=== PATIENT | female | born 1960 | race Caucasian/White ===

== ENCOUNTER → 2022-09-05 | Outpatient (CLI) | payer OTHER, SELFPAY ==
--- NOTE | 2022-09-05 13:00 | MRI_ITS ---
EXAM: MR RIGHT UPPER EXTREMITY WITHOUT INTRAVENOUS CONTRAST, SHOULDER CLINICAL INDICATION: Strain of the muscle rotator cuff TECHNIQUE: Multiplanar and multisequence MR images of the right shoulder without intravenous contrast. This report was created using [employer] technology. COMPARISON: None. FINDINGS: TENDONS: SUPRASPINATUS: Full thickness full width of tear of the supraspinatus tendon with failure at the footprint and retraction of the majority of the torn tendon fibers to about the midline. INFRASPINATUS: Infraspinatus tendon appears to be intact. SUBSCAPULARIS: Unremarkable. Intact. TERES MINOR: Unremarkable. Intact. BICEPS BRACHII, LONG HEAD: Unremarkable. The extra-articular biceps tendon is in the bicipital groove. The intra-articular biceps tendon is normal. LIGAMENTS: GLENOHUMERAL: Unremarkable. Intact. MUSCLES: Significant atrophy involving the infraspinatus and supraspinatus muscles. This could be due to the chronic nature of the injury. FLUID: Large glenohumeral joint effusion across into the subacromial/subdeltoid bursa through the full thickness rotator cuff defect. CARTILAGE: Unremarkable. Articular cartilage intact. GLENOID LABRUM: Unremarkable. Intact, limited evaluation on non-arthrographic exam. BONES/JOINTS: Superior subluxation of the right humeral head relative to the glenoid. No fracture. No abnormal bone marrow signal. OTHER SOFT TISSUES: Unremarkable. No rotator interval edema. MRI/Upper Ext Joint Only(Routine) IMPRESSION: 1. Full thickness full width of tear of the supraspinatus tendon with failure at the footprint and retraction of the majority of the torn tendon fibers to about the midline. 2. Type II acromion with curved undersurface. Moderate hypertrophic degenerative changes of the left Lion marilin. No definite subacromial enthesophyte or os acromiale. No coracoacromial ligament thickening. Electronically Signed: Ken De Paz MD at 2:13 EST ,
== END | disposition home or self-care (01) ==
LOC: MRI 12:54
PROVIDERS: Referring Provider Physician Assistant; Visit Provider Physician Assistant
DX: S46.011D Strain of muscle(s) and tendon(s) of the rotator cuff of right shoulder, subsequent encounter (principal)
CPT/HCPCS: 73221

== ENCOUNTER → 2022-09-22 | Outpatient (CLI) | payer OTHER, SELFPAY ==
--- NOTE | 2022-09-22 07:53 | CT_ITS ---
STUDY: CT SCAN LOWER EXTREMITY RIGHT. [facility] protocol. REASON FOR EXAM: Female, 62 years old. Planning for total knee replacement. RADIATION DOSAGE (If Supplied By Facility): CTDIvol = ( 19.53 ) mGy, DLP = ( 1505.26 ) mGycm. Individualized dose optimization techniques were used for this CT.? TECHNIQUE: Multiple axial tomographic images were obtained of the right hip joint, right knee joint and the right ankle joint. Coronal and sagittal reconstruction was obtained as well. COMPARISON: None. FINDINGS: Imaging of the hip joint was obtained. No significant joint space narrowing is seen. No evidence of subluxation. Imaging of the knee joint was obtained. There is a moderate degree of joint space narrowing involving the medial compartment of the knee joint. Degenerative spur formation of the distal medial and lateral femoral condyles. Mild degree of joint space scarring of the patellofemoral joint with degenerative spur formation along the distal anterior aspect of the femur. Imaging of the ankle joint was obtained as well. There is good alignment. No significant abnormality is seen. CT/Extremity Lower without Contra IMPRESSION: Moderate degree of joint space narrowing involving the medial compartment of the knee joint with degenerative spur formation of the distal femur as described. Electronically Signed: Roland Garcia MD at 14:23 EST ,
== END | disposition home or self-care (01) ==
PROVIDERS: PCP Registered Nurse; Referring Provider Orthopaedic Surgery; Visit Provider Orthopaedic Surgery
DX: M21.161 Varus deformity, not elsewhere classified, right knee (principal)
CPT/HCPCS: 73700

== ENCOUNTER 2022-10-10 05:34 | Day surgery (SDC) | payer OTHER, SELFPAY ==
--- NOTE | 2022-09-28 12:22 | EKG12_ITS ---
Test Reason : PRE-OP Blood Pressure : / mmHG Vent. Rate : 081 BPM Atrial Rate : 081 BPM P-R Int : 146 ms QRS Dur : 086 ms QT Int : 378 ms P-R-T Axes : 049 004 036 degrees QTc Int : 439 ms Normal sinus rhythm with sinus arrhythmia Poor R wave progression Confirmed by MAEGAN MENDOZA, NARENDRA ([id number]), continuity editor BRIANNE ENAMORADO ([id number]) on 09/29/2022 10:54:01 AM Referred By: Walter Waters Confirmed By:NARENDRA ISSA MD
[2022-09-28 13:46] LABS: Absolute Lymphocyte Count 1.68 X10^3/uL (0.83-4.51); Absolute Neutrophil Count 3.7 X10^3/uL (2.0-7.7); Basophil# 0.04 X10^3/uL; Basophil% 0.7 % (0-1); Eosinophil# 0.27 X10^3/uL; Eosinophils% 4.4 % (0-5); Hematocrit 43.5 % (37-47); Hemoglobin 13.8 g/dL (12.0-15.0); Lymphocyte # 1.68 X10^3/ul (0.83-4.51); Lymphocyte % 27.4 % (19-41); Mean Corp Hgb Conc 31.7 g/dL (32-36); Mean Corpuscular Volume 88.4 fL (81-99); Mean Platelet Vol. 10.5 fl (6.2-12.0); Monocyte% 6.5 % (0-10); NRBC Flagged by Analyzer 0 % (0-5); Neutrophil # 3.73 X10^3/uL (2.7-7.7); Neutrophil % 60.8 % (47-70); Platelet Count 224 K/mm3 (150-450); RBC Distribution Width CV 14.6 % (11.6-14.6); RBC Distribution Width SD 47.4 fl (35.1-43.9); Red Blood Count 4.92 M/mm3 (4.2-5.4); White Blood Count 6.1 K/mm3 (4.4-11.0)
[2022-09-28 14:15] LABS: Albumin, Serum 3.9 g/dL (3.2-5.0); Anion Gap 2 (5-15); BUN 16 mg/dL (7-18); BUN/Creat Ratio 21.3 RATIO (10-20); Calcium,Total 9.8 mg/dL (8.5-10.1); Chloride 107 mmol/L (98-107); Creatinine, Serum 0.75 mg/dL (0.55-1.02); EST Glomerular Filtration Rate 84 mL/min (>60); Est Glom Filt Rate - Afr Amer 101 mL/min (>60); Glucose 135 mg/dL (74-106); Potassium 4.4 mmol/L (3.5-5.1); Sodium Level 139 mmol/L (136-145)
[2022-09-28 14:19] LABS: Magnesium 2.1 mg/dL (1.6-2.6)
[2022-09-28 14:20] LABS: Hemoglobin A1c 5.7 % (3.8-5.6)
[2022-10-10] VITALS (14 sets, daily range): BP systolic 97–145; BP diastolic 62–86; PULSE 60–85; RESP 16–18; TEMP 36.1–37; O2SAT 94–100; BMI 44.3
[2022-10-10] MEDS: Lactated Ringers 1,000 ML 15 ML IV (06:35)
[2022-10-10] MEDS: Gabapentin 600 MG Tablet PO (06:38)
[2022-10-10] MEDS: Acetaminophen 500 MG Tablet 1000 MG PO ×2 (06:38→14:37)
[2022-10-10 07:11] LABS: Bedside Glucose 109 mg/dL (74-106)
--- NOTE | 2022-10-10 07:30 | KNEE_PTH ---
PATIENT: BÁRBARA DOHERTY LOC: [facility] [place] U#:[id number] AGE/SX: 62/F ROOM: RE10/10/[address]: Dr. Walter Waters DO : 1960 BED: DIS: 10/10/2022 SPEC #: [id number] RECD: 10/10/22 10:56 STATUS: JEREMIAH REQ #: [id number] RAJANI: 10/10/22 07:[address]: Walter Waters DEPT: SURGICAL PATHOLOGY RECD BY: Chayo Merida ENTERED: 10/10/22 12:00 SP TYPE: TOTAL KNEE OTHR DR: Edwina Rojas, CHANGE NUMBER OPERATORBrandy Tissues: Knee, NOS Procedures: Decalcification bone/plaque Surgery Specimen Level IV HEADER OPERATION: ERAS, total knee replacement robotic arm assist, right PRE-OP DIAGNOSIS: Osteoarthritis right knee TISSUE SUBMITTED: Right knee bone MICROSCOPIC DIAGNOSIS Bone and tissue of right knee, total knee resection: Severe degenerative joint disease. AM:mary 10/13/2022 MICROSCOPIC DESCRIPTION Slides are reviewed. GROSS DESCRIPTION Received is one container designated right knee bone. The specimen consists of multiple fragments of zhang-yellow bone measuring in aggregate 10 x 11 x 3 cm. No soft tissue is identified. A number of bony fragments contain articular surfaces consistent with tibial plateau and femoral condyle and displaying prominent osteophyte formation, eburnation, and bone erosion. Pot Reliner sections are submitted in one cassette after decalcification. / SJ:mary 10/10/2022 TC:5 CPT: 36371, [id number]
[2022-10-10] MEDS: Cefazolin 2 GM in 0.9% Normal Saline 100 ML IV (07:40)
[2022-10-10] MEDS: TXA 1000mg in NS100 100ml (IVPB at Incision) 660 MG IV (08:05)
[2022-10-10] MEDS: TXA 1000mg in NS100 100ml (IVPB at Closure) 660 MG IV (09:08)
--- NOTE | 2022-10-10 09:30 | PCM.OPRPT ---
Report of Operation Date of Procedure: 10/10/22 Pre-Operative Diagnosis: OA bilateral knees Post-Operative Diagnosis: same Surgery/Procedure Performed:: Right TKR, cortisone injection left knee Description of Surgical Findings:: Report of Operation Date of Procedure: 10/10/2022 Preoperative Diagnosis: [Bilateral ] knee primary osteoarthritis Postoperative Diagnosis: [Bilateral ] knee primary osteoarthritis Operation: Robotic Assisted Knee Total Arthroplasty, [ right knee ] knee, Injection left knee with 4 cc 1% Lidocaine without epinephrine and 2 cc Celestone Soluspan Surgeon: Dr Walter Waters DO Pneumatic Hoist Operator: Wenceslao Pollack PA-C Anesthesia: spinal Anesthesiologist: Dheeraj Alcantar M.D. Findings: Stable knee with good patella tracking Specimen(s): Bony cuts Complications: No intraoperative complications Estimated Blood Loss: 20 c IV Fluids: 100 cc crystalloid Implants Used: 1. [place] Triathlon press fit CR size 3 femur 2. Diana Triathlon size 4 tibia 3. 29 mm patella 4. 10 mm CS polyethylene Brief History Operative Indications: [ (62 y/o female) ] with history of [ bilateral ] knee osteoarthrosis with radiographic findings with loss of joint space, osteophyte formation and subchondral sclerosis. Failed conservative measures as mentioned in the H&P. Discussion of total knee arthroplasty as well as risk and benefits were discussed with the patient including but not limited to blood loss, DVTs, PEs, neurovascular damage, general risk of anesthesia including loss of life, and stiffness or instability were also discussed with the patient. Patient demonstrated understanding and was able to sign informed consent. Procedure: On the date of procedure, patient's [right ] lower extremity was marked in the preoperative area. The patient was then taken back to the operating room where that patient was placed on the table in the supine position. All bony prominences were identified and well-padded. Anesthesia assumed control of the C-spine and airway throughout the remainder of the procedure. A tourniquet was placed on the [right ] upper thigh and the leg was prepped in a sterile fashion. The surgeon then scrubbed at this time. Upon reentering the room, the [ right ] lower extremity was draped in a standard orthopedic fashion. A timeout was then called and everyone agreed upon the side, the site, the procedure to be performed, patient's identity and antibiotics given. Esmarch bandage was used to exsanguinate the extremity and the tourniquet was placed up to 300 mmHg with the knee in flexion. A midline skin incision was made and a sharp dissection was taken down through skin, subcutaneous tissue and fat. The standard medial parapatellar incision was made and the patella was subluxed laterally. An appropriate deep MCL release was done and the fat pad was resected. Our attention was then directed to the patella. The patella was everted and a flat resection was made. The knee was then flexed up and 2 femoral pins were placed inside the incision and 2 tibial pins were placed outside the incision in the medial tibia bicortically. Once this was completed, the 2 checkpoints in the femur and tibia were placed. Knee was then flexed up and the bony landmarks were registered. Once the was completed, the knee taken through range of motion and manually stressed allowing us to plan for an appropriate tibial cut. The robotic arm was brought into the field sterilely and checkpoint and saw were registered. Based on the patient's deformity, the tibial cut was made in [1 degree varus ]. At this time, the tensioner was then placed in the joint and ligament tension was checked at 90 degrees and full extension. Based on the patient's ligamentous tension, appropriate adjustments were made to the operative plan and ligament releases were done. Once we were happy with our operative plan with balanced flexion and extension gaps, our attention was directed to the femur. The robot was brought into the field sterilely and registered. Posterior condylar cuts, anterior chamfer cuts and anterior cuts were appropriately made for a [size 3 ] femur. When these were completed, the saws were switched out in the distal femoral and posterior chamfer cuts were made. Protecting the soft tissue throughout this time. A [size 4] base plate was selected. The knee was flexed to 90 degrees and soft tissues and posterior osteophytes were removed from the joint. 40 cc of the periarticular injection was injected into the posterior medial corner of the joint. The appropriate trials were then placed on the femur and tibia. A trial polyethylene was trialed to ensure proper balancing and stability of the knee. The appropriate tibial internal rotation was then marked with a bovie. Our attention was then directed to the patella. The lug holes were drilled and the patella trial was placed. Patellar tracking was checked and deemed appropriate. Once we were happy, lug holes were drilled for the femur and trial components were removed. The tibia was subluxed and pinned into place and the keel was punched and drilled appropriately. Final components were verified and opened. The wound was copiously irrigated with normal saline. The components were impacted into place with the tibia, femur and finally the patella. The trial poly component was placed and the knee was placed in full extension. The tracking, alignment and balance were verified and a [10 mm CS ] polyethylene component was placed. Once the final components were placed an Irrisept lavage was performed and the wound was copiously irrigated with normal saline solution and the periarticular injection was given. the wound was closed in a layer-thornton fashion using #1 vicryl interrupted sutures for the arthrotomy, 2-0 interrupted vicryl suture for the subcuticular layer and ruthy for final skin closure. A sterile compressive dressing was then placed. The left knee was prepared sterilely and the injected via an anteromedial approach with 4cc of 1% Lidocaine without epinephrine and 2 cc of Celestone Soluspan. A Band-Aid was placed on the injection site. The patient was then awakened from anesthesia, transferred to the [facility] and transferred to the PACU for recovery. My physician interior design assistant was a vital part of this case. He was important in appropriate retraction during the case, and protection of soft tissues during bony cuts. His intimate knowledge of the case and my steps aided in safe and expedient completion of the procedure as well as appropriate position of the leg during the case. He was also vital in assisting with closure under my direct supervision. Due to the complexity of this case, robotic arm was used to assist in the surgery to improve accuracy and clinical outcomes. Post-op Plan: DVT ppx; ASA 81 mg BID, thigh high compression stockings Follow up: in office in 2 weeks for wound check PT: to start POD #0 at hospital, outpatient PT should be arranged. Preoperative antibiotic: Walter Waters DO Surgeon: Walter Waters commercial lawn specialist: Wenceslao Pollack Type of Anesthesia: Spinal Anesthesiologist: Dheeraj Alcantar Specimen's removed: bone Drains: none Estimated Blood Loss (mL): 20 cc Fluids Replaced: 1000 cc crystalloid Admit VTE Documentation VTE Present on Admission: No VTE Mechan Device Prophylaxis: SCD's VTE Pharm Prophylaxis ordered?: Yes
[2022-10-10] MEDS: Triamcinolone Acetonide 40 MG/ML Vial (09:40)
[2022-10-10] MEDS: Lidocaine 1% (5 ml sdv) 5 ML Vial (09:40)
[2022-10-10] MEDS: Lactated Ringers 1,000 ML 999 ML IV (10:15)
--- NOTE | 2022-10-10 10:15 | RAD_ITS ---
STUDY: X-RAY - RIGHT KNEE REASON FOR EXAM: Female, 62 years old. Post op -- in PACU TECHNIQUE: 2 view(s) of the knee. COMPARISON: None. FINDINGS: The patient is status post total knee replacement. There is good alignment. Postoperative soft tissue changes. RAD/Knee 1 or 2 Views IMPRESSION: Status post total knee replacement. There is good alignment. Postoperative soft tissue changes. Electronically Signed: Roland Garcia MD at 10:57 EST ,
--- NOTE | 2022-10-10 13:16 | SUR.PHASEII ---
Patient attempted to stand at the side of the bed. She was able to stand for a few seconds, but when she tried to take a few steps she couldn't. She states her butt feels numb. So I put her back to bed to try again later.
[2022-10-10] MEDS: oxyCODONE 5 MG Tablet PO (13:32)
[2022-10-10] MEDS: Scopolamine 1mg/72hr Patch 1 PATCH TD (14:52)
[2022-10-10] MEDS: Ondansetron 4 MG/2 ML Vial IV (15:26)
--- NOTE | 2022-10-10 15:26 | SUR.PHASEII ---
Patient was able to get up to the chair after walking two step with her walker. She still c/o dizziness and now is afraid she is going to vomit. Zofran 4mg given via IV push per doctor order. Patient remains in the chair so we can see if this subsides.
--- NOTE | 2022-10-10 15:47 | SUR.PHASEII ---
PATIENT VOMITED ONCE IN WHILE UP IN THE CHAIR, BUT SHE SAYS SHE FEELS BETTER AND ONCE TO TRY AND WALK. PT Called and will be over.
== END 2022-10-10 17:27 | disposition home or self-care (01) ==
LOC: SDC 05:35 → AC 05:36
PROVIDERS: Anesthesiology; PCP Registered Nurse; Referring Provider Orthopaedic Surgery; Visit Provider Orthopaedic Surgery
PROC: (CPT 27447; principal; 2022-10-10 07:00)
DX: M17.11 Unilateral primary osteoarthritis, right knee (principal); E66.01 Morbid (severe) obesity due to excess calories; Z68.41 Body mass index [BMI] 40.0-44.9, adult; M21.161 Varus deformity, not elsewhere classified, right knee
CPT/HCPCS: 27447; 20610; 01402; 36415; 73560; 80048; 82040; 82962; 83036; 83735; 85025; 87081; 88305; 88311; 93005; 97162; C1776; J7120; A4216; J2405; J3475

== ENCOUNTER 2023-01-02 05:30 | Day surgery (SDC) | payer OTHER, SELFPAY ==
[2022-12-29 12:27] LABS: Hematocrit 43.9 % (37-47); Hemoglobin 13.7 g/dL (12.0-15.0); Mean Corp Hgb Conc 31.2 g/dL (32-36); Mean Corpuscular Hgb 27.9 pg (27.0-32.0); Mean Corpuscular Volume 89.4 fL (81-99); Mean Platelet Vol. 9.5 fl (6.2-12.0); Platelet Count 212 K/mm3 (150-450); RBC Distribution Width CV 13.9 % (11.6-14.6); RBC Distribution Width SD 45.4 fl (35.1-43.9); Red Blood Count 4.91 M/mm3 (4.2-5.4); White Blood Count 8.3 K/mm3 (4.4-11.0)
[2022-12-29 13:01] LABS: Albumin, Serum 3.6 g/dL (3.2-5.0); Anion Gap 4 (5-15); BUN 18 mg/dL (7-18); BUN/Creat Ratio 28.9 RATIO (10-20); Calcium,Total 9.9 mg/dL (8.5-10.1); Chloride 105 mmol/L (98-107); Creatinine, Serum 0.62 mg/dL (0.55-1.02); EST Glomerular Filtration Rate 104 mL/min (>60); Est Glom Filt Rate - Afr Amer 125 mL/min (>60); Glucose 95 mg/dL (74-106); Potassium 4.6 mmol/L (3.5-5.1); Sodium Level 138 mmol/L (136-145)
[2022-12-29 13:04] LABS: Magnesium 2.1 mg/dL (1.6-2.6)
[2022-12-29 13:07] LABS: Hemoglobin A1c 5.5 % (3.8-5.6)
[2023-01-02] VITALS (10 sets, daily range): BP systolic 92–124; BP diastolic 48–78; PULSE 64–78; RESP 14–18; TEMP 36–36.6; O2SAT 95–100; BMI 43.3
--- NOTE | 2023-01-02 | KNEE_PTH ---
PATIENT: BÁRBARA DOHERTY LOC: [facility] – [place] U#:[id number] AGE/SX: 62/F ROOM: RE01/02/[address]: Dr. Walter Waters DO : 1960 BED: DIS: 01/02/2023 SPEC #: [id number] RECD: 01/02/23 13:02 STATUS: JEREMIAH REGladys #: [id number] RAJANI: 01/02/23 00:[address]: Walter Waters DEPT: SURGICAL PATHOLOGY RECD BY: Christian Rosa ENTERED: 01/02/23 13:02 SP TYPE: TOTAL KNEE OTHR DR: Edwina Rojas, BILINGUAL TEACHER-C Tissues: Knee, NOS Procedures: Decalcification bone/plaque Surgery Specimen Level IV HEADER OPERATION: ERAS, total knee replacement robotic arm assist PRE-OP DIAGNOSIS: Primary osteoarthritis left knee TISSUE SUBMITTED: Bone and soft tissue left knee MICROSCOPIC DIAGNOSIS Bone and tissue of left knee, total knee resection: Severe degenerative joint disease. AM:mary 01/05/2023 MICROSCOPIC DESCRIPTION Slides are reviewed. GROSS DESCRIPTION Received is one container designated bone and soft tissue left knee. The specimen consists of multiple fragments of zhang-yellow bone measuring in aggregate 10.0 x 10.x 3.0 cm. Also in the specimen container are multiple fragments of yellow-white soft tissue (cartilaginous tissue) measuring in aggregate 5.0 x 3.0 x 2.0 cm. A number of bony fragments contain articular surfaces consistent with tibial plateau and femoral condyle and displaying prominent osteophyte formation, eburnation and bone erosion. [employer] Remover sections are submitted in two cassettes as follows: 1 - soft tissue, 2 - bone after decalcification. / SJ:mary 01/02/2023 TC:5 [facility]: [id number], [id number]
[2023-01-02] MEDS: Gabapentin 600 MG Tablet PO (06:27)
[2023-01-02] MEDS: Acetaminophen 500 MG Tablet 1000 MG PO (06:28)
[2023-01-02] MEDS: Lactated Ringers 1,000 ML 15 ML IV (06:35)
[2023-01-02 07:20] LABS: Bedside Glucose 107 mg/dL (74-106)
[2023-01-02] MEDS: Magnesium 1 GM over 15 mins IV (07:30)
[2023-01-02] MEDS: Cefazolin 2 GM in 0.9% Normal Saline 100 ML IV (07:35)
--- NOTE | 2023-01-02 07:42 | RAD_ITS ---
STUDY: X-RAY - LEFT KNEE REASON FOR EXAM: Female, 62 years old. Postop from hip replacement surgery TECHNIQUE: 2 view(s) of the knee. COMPARISON: None. FINDINGS: Patient is status post left knee replacement surgery. Components demonstrate anatomic alignment. No plain film evidence of hardware complication, failure, or acute abnormality. Normal postoperative soft tissue swelling and subcutaneous emphysema. Lucencies in the distal femur and mid shaft of the tibia likely represent defects from previous external fixators RAD/Knee 1 or 2 Views IMPRESSION: Replaced left knee demonstrates anatomic alignment, no postoperative complications Electronically Signed: Get Curry MD at 10:10 EDT ,
[2023-01-02] MEDS: TXA 1000mg in NS100 100ml (IVPB at Closure) 660 MG IV (07:45)
[2023-01-02] MEDS: JPS (Morphine 10mg/ml) OPERA.SITE (08:43)
[2023-01-02] MEDS: TXA 1000mg in NS100 100ml (IVPB at Incision) 660 MG IV (08:50)
--- NOTE | 2023-01-02 08:58 | OP.PCM_ITS ---
Report of Operation Date of Procedure: 01/02/23 Pre-Operative Diagnosis: OA left knee Post-Operative Diagnosis: same Surgery/Procedure Performed:: Left TKR Description of Surgical Findings:: Report of Operation Date of Procedure: 01/02/2023 Preoperative Diagnosis: [ left ] knee primary osteoarthritis Postoperative Diagnosis: [left ] knee primary osteoarthritis Operation: Robotic Assisted Knee Total Arthroplasty, [left ] knee Surgeon: Dr Walter Waters DO Addiction Therapist: Wenceslao Pollack PA-C Anesthesia: spinal Anesthesiologist: Coliln El M.D. Findings: Stable knee with good patella tracking Specimen(s): Bony cuts Complications: No intraoperative complications Estimated Blood Loss: 20 cc IV Fluids: 1000 cc crystalloid Implants Used: 1. [place] Triathlon press-fit CR size 3 femur 2. [place] Triathlon size 4 tibia 3. 32 mm patella 4. 10 mm CS polyethylene Brief History Operative Indications: [ (62 y/o female) ] with history of [left ] knee osteoarthrosis with radiographic findings with loss of joint space, osteophyte formation and subchondral sclerosis. Failed conservative measures as mentioned in the H&P. Discussion of total knee arthroplasty as well as risk and benefits were discussed with the patient including but not limited to blood loss, DVTs, PEs, neurovascular damage, general risk of anesthesia including loss of life, and stiffness or instability were also discussed with the patient. Patient demonstrated understanding and was able to sign informed consent. Procedure: On the date of procedure, patient's [left ] lower extremity was marked in the preoperative area. The patient was then taken back to the operating room where that patient was placed on the table in the supine position. All bony prominences were identified and well-padded. Anesthesia assumed control of the C-spine and airway throughout the remainder of the procedure. A tourniquet was placed on the [left ] upper thigh and the leg was prepped in a sterile fashion. The surgeon then scrubbed at this time. Upon reentering the room, the [ left ] lower extremity was draped in a standard orthopedic fashion. A timeout was then called and everyone agreed upon the side, the site, the procedure to be performed, patient's identity and antibiotics given. Esmarch bandage was used to exsanguinate the extremity and the tourniquet was placed up to 300 mmHg with the knee in flexion. A midline skin incision was made and a sharp dissection was taken down through skin, subcutaneous tissue and fat. The standard medial parapatellar incision was made and the patella was subluxed laterally. An appropriate deep MCL release was done and the fat pad was resected. Our attention was then directed to the patella. The patella was everted and a flat resection was made. The knee was then flexed up and 2 femoral pins were placed inside the incision and 2 tibial pins were placed outside the incision in the medial tibia bicortically. Once this was completed, the 2 checkpoints in the femur and tibia were placed. Knee was then flexed up and the bony landmarks were registered. Once the was completed, the knee taken through range of motion and manually stressed allowing us to plan for an appropriate tibial cut. The robotic arm was brought into the field sterilely and checkpoint and saw were registered. Based on the patient's deformity, the tibial cut was made in [2 degrees varus ]. At this time, the tensioner was then placed in the joint and ligament tension was checked at 90 degrees and full extension. Based on the patient's ligamentous tension, appropriate adjustments were made to the operative plan and ligament releases were done. Once we were happy with our operative plan with balanced flexion and extension gaps, our attention was directed to the femur. The robot was brought into the field sterilely and registered. Posterior condylar cuts, anterior chamfer cuts and anterior cuts were appropriately made for a [size 3 ] femur. When these were completed, the saws were switched out in the distal femoral and posterior chamfer cuts were made. Protecting the soft tissue throughout this time. A [size4 ] base plate was selected. The knee was flexed to 90 degrees and soft tissues and posterior osteophytes were removed from the joint. 40 cc of the periarticular injection was injected into the posterior medial corner of the joint. The appropriate trials were then placed on the femur and tibia. A trial polyethylene was trialed to ensure proper balancing and stability of the knee. The appropriate tibial internal rotation was then marked with a bovie. Our attention was then directed to the patella. The lug holes were drilled and the patella trial was placed. Patellar tracking was checked and deemed appropriate. Once we were happy, lug holes were drilled for the femur and trial components were removed. The tibia was subluxed and pinned into place and the keel was punched and drilled appropriately. Final components were verified and opened. The wound was copiously irrigated with normal saline. The components were impacted into place with the tibia, femur and finally the patella. The trial poly component was placed and the knee was placed in full extension. The tracking, alignment and balance were verified and a [10 mm CS ] polyethylene component was placed. Once the final components were placed an Irrisept lavage was performed and the wound was copiously irrigated with normal saline solution and the periarticular injection was given. the wound was closed in a layer-thornton fashion using #1 vicryl interrupted sutures for the arthrotomy, 2-0 interrupted vicryl suture for the subcuticular layer and ruthy for final skin closure. A sterile compressive dressing was then placed. The patient was then awakened from anesthesia, transferred to the [facility] and transferred to the PACU for recovery. My physician commercial lines assistant was a vital part of this case. He was important in appropriate retraction during the case, and protection of soft tissues during bony cuts. His intimate knowledge of the case and my steps aided in safe and expedient completion of the procedure as well as appropriate position of the leg during the case. He was also vital in assisting with closure under my direct supervision. Due to the complexity of this case, robotic arm was used to assist in the surgery to improve accuracy and clinical outcomes. Post-op Plan: DVT ppx; ASA 81 mg BID, thigh high compression stockings Follow up: in office in 2 weeks for wound check PT: to start POD #0 at hospital, outpatient PT should be arranged. Preoperative antibiotic: Ancef 2 grams IV Walter Waters DO Surgeon: Walter Waters lithopone mill worker: Wenceslao Pollack Type of Anesthesia: Spinal Anesthesiologist: Collin El Specimen's removed: bone Estimated Blood Loss (mL): 20 cc Fluids Replaced: 1000 cc crystalloid Admit VTE Documentation VTE Present on Admission: No VTE Mechan Device Prophylaxis: SCD's and Thigh High MARIELLE Hose VTE Pharm Prophylaxis ordered?: Yes
[2023-01-02] MEDS: Lactated Ringers 1,000 ML 999 ML IV (09:55)
== END 2023-01-02 15:20 | disposition home or self-care (01) ==
LOC: SDC 05:30 → AC 05:31
PROVIDERS: Anesthesiology; PCP Registered Nurse; Referring Provider Orthopaedic Surgery; Visit Provider Orthopaedic Surgery
PROC: 0SRD0JZ Replacement of Left Knee Joint with Synthetic Substitute, Open Approach (ICD-10-PCS; CPT 27447; principal; 2023-01-02 07:00)
DX: M17.12 Unilateral primary osteoarthritis, left knee (principal); E66.01 Morbid (severe) obesity due to excess calories; Z68.41 Body mass index [BMI] 40.0-44.9, adult; Z96.651 Presence of right artificial knee joint
CPT/HCPCS: 27447; 01402; 64445; 36415; 73560; 80048; 82040; 82962; 83036; 83735; 85027; 87081; 88305; 88311; 97162; C1776; J7120; J2405; J3475